=== PATIENT | female | born 1980 | race Caucasian/White ===

== ENCOUNTER 2016-09-10 14:44 | Emergency (ER) | payer OTHER ==
[~2016-09-10] VITALS: Ht 162.6 cm; Wt 49.0 kg
[2016-09-10 15:49] VITALS: BP 120/71
--- NOTE | 2016-09-10 16:37 | RAD ---
EXAM: Right shoulder, 3 views. HISTORY: Fall. COMPARISON: None. FINDINGS: Internal and external rotation and transscapular views of the right shoulder are obtained. There is no fracture, dislocation or subluxation. There are right apical anastomotic sutures. IMPRESSION: No acute osseous finding.
--- NOTE | 2016-09-10 17:20 | RAD ---
PROCEDURE Right wrist radiographs. HISTORY Trauma, fall, pain in thumb radiating into wrist. TECHNIQUE PA, lateral, and oblique views of the right wrist. COMPARISON None. FINDINGS No acute fracture or dislocation is identified. No focal soft tissue swelling is seen. IMPRESSION No acute osseous traumatic injury identified. Electronically signed by: Doc Deleon MD (Sep 10, 2016 17:19:04)
[2016-09-10] MEDS ORDERED: TRAM-29 PO (17:22)
--- NOTE | 2016-09-10 17:22 | PHYS DOC ---
Past Medical History Past Medical History: No Pertinent History Past Surgical History: Appendectomy, Other Additional Past Surgical Histo: pleruodesis w chest tube Additional Information: social smoker Alcohol Use: Rarely Drug Use: None Adult General Chief Complaint Chief Complaint: UPPER EXTREMITY PAIN HPI HPI Patient is a 36 year old female who presents with right shoulder and right wrist pain after slipping and falling at 1400 today. She was chasing her dog to keep it from running out of the house and slipped. She landed with her right arm outstretched. She denies hitting her head or loss of consciousness. Her PCP is Dr. Remi Toro. Review of Systems Review of Systems Constitutional: Denies fever or chills. [] Musculoskeletal: Denies back pain. Reports right wrist and right shoulder pain. Integument: Denies rash or skin lesions. [] Neurologic: Denies headache, focal weakness or sensory changes. Denies loss of consciousness. Allergies Allergies Allergies Coded Allergies Type Severity Reaction Last Updated Verified No Known Drug Allergies 09/10/16 No Physical Exam Physical Exam Constitutional: Well developed, well nourished, no acute distress, non-toxic appearance. [] HENT: Normocephalic, atraumatic, oropharynx moist. [] Eyes: PERRLA, EOMI, conjunctiva normal, no discharge. [] Neck: Normal range of motion, no tenderness, supple, no stridor. [] Skin: Warm, dry, no erythema, no rash. [] Back: No midline tenderness, no CVA tenderness. [] Extremities: Right wrist tenderness diffusely, ROM mildly decreased due to pain , no edema. 2+ radial and ulnar pulses. Less than 2 second capillary refill in the fingers. Light touch sensation intact distally. Extremities 2: Right clavicle tenderness without tenderness at the A/C joint, ROM mildly decreased due to pain, no edema. Neurovascularly intact distally. Neurologic: Alert and oriented X 3, normal motor function, normal sensory function, no focal deficits noted. [] Psychologic: Affect normal, judgement normal, mood normal. [] Current Patient Data Vital Signs Vital Signs Date Time Temp Pulse Resp B/P Pulse Ox O2 Delivery O2 Flow Rate FiO2 09/10/16 15:49 97.8 79 18 99 Room Air 97.8 EKG EKG [] Radiology/Procedures Radiology/Procedures Three-view x-ray of the right wrist reviewed and interpreted by myself with Dr. Nguyễn. There are no acute fractures or dislocations. REASON: slip & fall with outstretched hand PROCEDURE: SHOULDER 2+V RIGHT EXAM: Right shoulder, 3 views. HISTORY: Fall. COMPARISON: None. FINDINGS: Internal and external rotation and transscapular views of the right shoulder are obtained. There is no fracture, dislocation or subluxation. There are right apical anastomotic sutures. IMPRESSION: No acute osseous finding. Course & Med Decision Making Course & Med Decision Making Pertinent Labs and Imaging studies reviewed. (See chart for details) Patient declines offer for wrist splint or sling. She is given contact information for orthopedics for follow-up. Return precautions were discussed. She verbalizes understanding and agrees with plan. Dragon Disclaimer Dragon Disclaimer This electronic medical record was generated, in whole or in part, using a voice recognition dictation system. Departure Departure Impression: Primary Impression: Sprain of wrist, right Additional Impression: Shoulder strain Disposition: 01 HOME, SELF-CARE Condition: STABLE Referrals: DARRELL CORRIGAN DO (PCP) DARRELL ESPINOZA MD Patient Instructions: Shoulder Pain, [id number], Wrist Pain, [id number] Additional Instructions: Your x-rays did not show any acute fractures or dislocations. Please take the prescribed pain medication as directed. Do not drive or operate heavy machinery while taking pain medication. Please follow-up with the orthopedic doctor listed below if your pain continues. Return to the emergency department if you have any new or concerning symptoms. Scripts Tramadol Hcl (Ultram)50 Mg [id number] Mg PO Q6H PRN PAIN #20 TAB Prov:TIMBO FROST 09/10/16 Problem Qualifiers Primary Impression: Sprain of wrist, right Encounter type: initial encounter Qualified Code: S63.501A - Unspecified sprain of right wrist, initial encounter Additional Impression: Shoulder strain Encounter type: initial encounter Laterality: right Qualified Code: S46.911A - Strain of unspecified muscle, fascia and tendon at shoulder and upper arm level, right arm, initial encounter TIMBO FROST Sep 10, 2016 17:22
== END 2016-09-10 17:28 | disposition home or self-care (01) ==
LOC: ER 14:44 → EDBD 14:44 → ER 17:28
DX: S46.911A Strain of unspecified muscle, fascia and tendon at shoulder and upper arm level, right arm, initial encounter (principal); S63.501A Unspecified sprain of right wrist, initial encounter; F17.200 Nicotine dependence, unspecified, uncomplicated; W01.0XXA Fall on same level from slipping, tripping and stumbling without subsequent striking against object, initial encounter; Y93.89 Activity, other specified; Y99.8 Other external cause status; Y92.89 Other specified places as the place of occurrence of the external cause
CPT/HCPCS: 73030; 73110; 99284